=== PATIENT | male | born 1945 | race Caucasian/White ===

== ENCOUNTER 2018-09-16 07:54 | Day surgery (SDC) | payer OTHER, MEDICARE ==
[2018-09-10 17:21] VITALS: BMI 26.2
[2018-09-16] MEDS ORDERED: PROPOFOL 20 ML ONE ×3 (08:16)
[2018-09-16] MEDS ORDERED: LIDOCAINE HCL/PF 2% SDV 5ML VIAL ONE (08:17)
[2018-09-16 10:18] VITALS: TEMP 97.6
[2018-09-16 11:53] VITALS: BP 115/74; PULSE 66
--- NOTE | 2018-09-20 15:22 | PATH ---
Surgical Pathology Report Patient Name: CAMI BECERRIL [facility]. Rec. #: [id number] /Age/Gender: 1945 (Age: 72) / M Account: [id number] Location: [facility] Taken: 09/16/2018 Received: 09/16/2018 Reported: 09/20/2018 Physicians: Saud Britt M.D. Specimen(s) Received A: DUODENUM BIOPSY B: ANTRUM BIOPSY C: PROXIMAL SIGMOID POLYP D: RECTO SIGMOIDAL POLYP Clinical History Family history of colon cancer, GERD Postoperative diagnosis: Gastritis, polyps Final Diagnosis A. DUODENUM, BIOPSY: DUODENAL MUCOSA WITH NO DIAGNOSTIC ABNORMALITIES. NO HISTOLOGIC EVIDENCE OF CELIAC DISEASE. B. ANTRUM, BIOPSY: GASTRIC MUCOSA WITH ACTIVE CHRONIC GASTRITIS. IMMUNOSTAIN FOR H. PYLORI IS POSITIVE. NEGATIVE FOR INTESTINAL METAPLASIA. C. PROXIMAL SIGMOID POLYP, POLYPECTOMY: TUBULAR ADENOMA. D. RECTOSIGMOID POLYP, POLYPECTOMY: TUBULAR ADENOMA, ONE FRAGMENT. SEPARATE HYPERPLASTIC POLYP, ONE FRAGMENT. Electronically Signed Mitra Olmos M.D. Gross Description A. Received in formalin, labeled "duodenum biopsy" are 2 spain, irregular portions of soft tissue measuring 0.3 and 0.4 cm. in greatest dimension. The specimens are submitted in toto in one cassette. B. Received in formalin, labeled "antrum biopsy" are 2 spain, irregular portions of soft tissue measuring 0.4 and 0.6 cm. in greatest dimension. The specimens are submitted in toto in one cassette. C. Received in formalin, labeled "proximal sigmoid polyp" is a spain, irregular portion of soft tissue measuring 0.5 cm. in greatest dimension. The specimen is submitted in toto in one cassette. D. Received in formalin, labeled "rectosigmoid polyp" are 2 spain, irregular portions of soft tissue measuring 0.2 and 0.3 cm. in greatest dimension. The specimens are submitted in toto in one cassette. 09/17/201809/17/2018
== END 2018-09-16 10:50 | disposition home or self-care (01) ==
LOC: FASU-ENDO 07:54
PROVIDERS: ATTEND Internal Medicine Gastroenterology
PROC: 0DB98ZX Excision of Duodenum, Via Natural or Artificial Opening Endoscopic, Diagnostic (ICD-10-PCS; 2018-09-16)
PROC: 0DB68ZX Excision of Stomach, Via Natural or Artificial Opening Endoscopic, Diagnostic (ICD-10-PCS; 2018-09-16)
PROC: 0DBN8ZX Excision of Sigmoid Colon, Via Natural or Artificial Opening Endoscopic, Diagnostic (ICD-10-PCS; principal; 2018-09-16 09:05)
DX: Z12.11 Encounter for screening for malignant neoplasm of colon (principal); D12.5 Benign neoplasm of sigmoid colon; D12.7 Benign neoplasm of rectosigmoid junction; K63.5 Polyp of colon; K29.50 Unspecified chronic gastritis without bleeding; B96.81 Helicobacter pylori [H. pylori] as the cause of diseases classified elsewhere; R10.13 Epigastric pain
CPT/HCPCS: 88305-TC; 88342-TC